=== PATIENT | female | born 1965 | race Caucasian/White ===

== ENCOUNTER 2019-04-01 00:55 | Inpatient (IN) | payer OTHER ==
[2019-04-01] MEDS ORDERED: ACETAMINOPHEN 325 MG TAB PO (05:30)
[2019-04-01] MEDS ORDERED: HYDROCODONE/APAP (5/325) TAB PO (05:30)
[2019-04-01] MEDS ORDERED: VANCOMYCIN IV PER PHARMACY XX (05:30)
[2019-04-01] MEDS ORDERED: ONDANSETRON 4 MG INJ IV (05:30)
[2019-04-01 06:13] LABS: ADD MAN DIFF? NO
[2019-04-01 06:22] LABS: BASOPHIL # 0.1 10^3/ul (0.0-0.1); BASOPHILS % 0.5 % (0.0-2.0); EOSINOPHILS # 0.2 10^3/ul (0.0-0.5); EOSINOPHILS % 1.8 % (0.0-7.0); HEMATOCRIT 35.4 % (37.0-47.0); HEMOGLOBIN 11.5 g/dl (12.0-16.0); LYMPHOCYTES # 1.7 10^3/ul (0.8-2.9); LYMPHOCYTES % 17.4 % (15.0-51.0); MEAN CORPUSCULAR HEMOGLOBIN 31.3 pg (29.0-33.0); MEAN CORPUSCULAR HGB CONC 32.5 g/dl (32.0-37.0); MEAN CORPUSCULAR VOLUME 96.2 fl (82.0-101.0); MEAN PLATELET VOLUME 10.3 fl (7.4-10.4); MONOCYTE # 0.8 10^3/ul (0.3-0.9); MONOCYTES % 8.2 % (0.0-11.0); NEUTROPHILS % 71.2 % (39.0-77.0); PLATELET COUNT 280 10^3/UL (140-415); RED BLOOD COUNT 3.68 10^6/ul (4.20-5.40); RED CELL DISTRIBUTION WIDTH 13.1 % (11.5-14.5)
[2019-04-01 06:22] LABS: WHITE BLOOD COUNT 9.9 10^3/ul (4.8-10.8)
[2019-04-01] MEDS: SOD CHLORIDE 0.9% 1,000 ML IV ×2 (06:27→15:02)
[2019-04-01] MEDS: NACL 0.9% 3 ML SYG IV (06:28)
[2019-04-01] MEDS: VANCOMYCIN 1.25 GM/NS 250 ML 250 ML IVPB (06:28)
[2019-04-01 06:50] LABS: ALANINE AMINOTRANSFERASE 29 IU/L (13-69); ALBUMIN 3.4 g/dl (3.3-4.9); ALBUMIN/GLOBULIN RATIO 0.94; ALKALINE PHOSPHATASE 201 IU/L (42-121); ANION GAP 6 (5-13); ASPARTATE AMINO TRANSFERASE 35 IU/L (15-46); BILIRUBIN,INDIRECT 0.5 mg/dl (0-1.1); BILIRUBIN,TOTAL 0.5 mg/dl (0.2-1.3); BLOOD UREA NITROGEN 15 mg/dl (7-20); CALCIUM 9.2 mg/dl (8.4-10.2); CARBON DIOXIDE 32 mmol/L (21-31); CHLORIDE 100 mmol/L (97-110); CHOL/HDL RATIO 5.4 RATIO; CHOLESTEROL 130 mg/dl (100-200); CREATININE 0.74 mg/dl (0.44-1.00); Estimated GFR > 60 mL/min (>60); GLUCOSE 166 mg/dl (70-220); HDL CHOLESTEROL 24 mg/dl (37-92); LDL CHOLESTEROL,CALCULATED 83 mg/dl; MAGNESIUM 2.2 mg/dl (1.7-2.5); POTASSIUM 3.9 mmol/L (3.5-5.1); SODIUM 138 mmol/L (135-144); TRIGLYCERIDES 117 mg/dl (0-149)
[2019-04-01 06:58] LABS: HEMOGLOBIN A1C 5.1 % (0-5.9)
[2019-04-01] MEDS: CEFEPIME 1GM/50 ML (PMX) 50 ML IVPB ×2 (09:03→23:23)
[2019-04-01] MEDS: HEPARIN 5,000 UNIT/1 ML VIAL SC ×2 (09:03→22:44)
[2019-04-01 09:40] LABS: C-REACTIVE PROTEIN 8.9 mg/dl (0.0-0.9)
[2019-04-01 10:43] LABS: ERYTHROCYTE SEDIMENTATION RATE 66 mm/Hr (0-30)
[2019-04-01] MEDS: HYDROCODONE/APAP (5/325) TAB PO ×2 (10:59→23:29)
[2019-04-01] MEDS: BISACODYL (EC) 5 MG TAB PO (16:38)
[2019-04-01] MEDS: VANCOMYCIN 750 MG (PMX) 250 ML IVPB (18:08)
[2019-04-02] MEDS: VANCOMYCIN 750 MG (PMX) 250 ML IVPB ×2 (06:01→17:53)
[2019-04-02] MEDS: HYDROCODONE/APAP (5/325) TAB PO ×4 (06:02→23:28)
[2019-04-02 06:18] LABS: ADD MAN DIFF? NO
[2019-04-02 06:30] LABS: WHITE BLOOD COUNT 7.1 10^3/ul (4.8-10.8)
[2019-04-02 06:30] LABS: BASOPHIL # 0.1 10^3/ul (0.0-0.1); BASOPHILS % 0.7 % (0.0-2.0); EOSINOPHILS # 0.2 10^3/ul (0.0-0.5); EOSINOPHILS % 2.1 % (0.0-7.0); HEMOGLOBIN 10.9 g/dl (12.0-16.0); LYMPHOCYTES # 1.6 10^3/ul (0.8-2.9); LYMPHOCYTES % 23.1 % (15.0-51.0); MEAN CORPUSCULAR HEMOGLOBIN 31.2 pg (29.0-33.0); MEAN CORPUSCULAR HGB CONC 32.1 g/dl (32.0-37.0); MEAN CORPUSCULAR VOLUME 97.4 fl (82.0-101.0); MEAN PLATELET VOLUME 9.9 fl (7.4-10.4); MONOCYTE # 0.5 10^3/ul (0.3-0.9); MONOCYTES % 7.3 % (0.0-11.0); NEUTROPHIL # 4.6 10^3/ul (1.6-7.5); NEUTROPHILS % 64.8 % (39.0-77.0); PLATELET COUNT 305 10^3/UL (140-415); RED BLOOD COUNT 3.49 10^6/ul (4.20-5.40); RED CELL DISTRIBUTION WIDTH 12.9 % (11.5-14.5)
[2019-04-02 06:55] LABS: ANION GAP 4 (5-13); BLOOD UREA NITROGEN 12 mg/dl (7-20); CALCIUM 8.8 mg/dl (8.4-10.2); CARBON DIOXIDE 32 mmol/L (21-31); CHLORIDE 102 mmol/L (97-110); CREATININE 0.64 mg/dl (0.44-1.00); Estimated GFR > 60 mL/min (>60); GLUCOSE 100 mg/dl (70-220); POTASSIUM 4.1 mmol/L (3.5-5.1); SODIUM 138 mmol/L (135-144)
[2019-04-02] MEDS: CEFEPIME 1GM/50 ML (PMX) 50 ML IVPB ×2 (09:19→21:14)
[2019-04-02] MEDS: HEPARIN 5,000 UNIT/1 ML VIAL SC ×2 (09:22→21:16)
[2019-04-03] MEDS: HYDROCODONE/APAP (5/325) TAB PO ×3 (05:26→20:38)
[2019-04-03 06:32] LABS: VANCOMYCIN,TROUGH 7.1 ug/ml (10.0-20.0)
[2019-04-03] MEDS: VANCOMYCIN 750 MG (PMX) 250 ML IVPB ×3 (06:53→22:34)
[2019-04-03] MEDS: CEFEPIME 1GM/50 ML (PMX) 50 ML IVPB ×2 (09:08→20:31)
[2019-04-03 09:16] LABS: ADD MAN DIFF? NO
[2019-04-03 09:28] LABS: BASOPHIL # 0.1 10^3/ul (0.0-0.1); BASOPHILS % 0.7 % (0.0-2.0); EOSINOPHILS # 0.2 10^3/ul (0.0-0.5); EOSINOPHILS % 2.1 % (0.0-7.0); HEMATOCRIT 35.6 % (37.0-47.0); HEMOGLOBIN 11.5 g/dl (12.0-16.0); LYMPHOCYTES # 1.7 10^3/ul (0.8-2.9); LYMPHOCYTES % 22.9 % (15.0-51.0); MEAN CORPUSCULAR HEMOGLOBIN 31.3 pg (29.0-33.0); MEAN CORPUSCULAR HGB CONC 32.3 g/dl (32.0-37.0); MEAN CORPUSCULAR VOLUME 96.7 fl (82.0-101.0); MEAN PLATELET VOLUME 9.6 fl (7.4-10.4); MONOCYTE # 0.5 10^3/ul (0.3-0.9); NEUTROPHIL # 4.8 10^3/ul (1.6-7.5); NEUTROPHILS % 63.1 % (39.0-77.0); PLATELET COUNT 370 10^3/UL (140-415); RED BLOOD COUNT 3.68 10^6/ul (4.20-5.40)
[2019-04-03 09:28] LABS: WHITE BLOOD COUNT 7.6 10^3/ul (4.8-10.8)
[2019-04-03 09:38] LABS: ANION GAP 6 (5-13); BLOOD UREA NITROGEN 10 mg/dl (7-20); CALCIUM 8.7 mg/dl (8.4-10.2); CARBON DIOXIDE 31 mmol/L (21-31); CHLORIDE 100 mmol/L (97-110); CREATININE 0.61 mg/dl (0.44-1.00); Estimated GFR > 60 mL/min (>60); GLUCOSE 92 mg/dl (70-220); POTASSIUM 3.8 mmol/L (3.5-5.1); SODIUM 137 mmol/L (135-144)
[2019-04-03 09:47] LABS: INR 0.88; PT RATIO 0.9
[2019-04-03 09:48] LABS: PARTIAL THROMBOPLASTIN TIME 37.6 Sec (23.0-35.0)
[2019-04-03] MEDS ORDERED: POLYMYXIN B 500000 UNIT INJ (16:29)
[2019-04-03] MEDS ORDERED: PROPOFOL 20 ML (16:44)
[2019-04-03] MEDS ORDERED: LIDOCAINE 1% (MDV) 20 ML INJ (16:45)
[2019-04-03] MEDS ORDERED: MIDAZOLAM 1 MG/ML 2 ML INJ (16:45)
[2019-04-03] MEDS ORDERED: HYDROGEN PEROXIDE 118 ML (16:52)
[2019-04-03] MEDS ORDERED: CEFAZOLIN 1 GM INJ (17:01)
[2019-04-03] MEDS ORDERED: ONDANSETRON 4 MG INJ (17:22)
[2019-04-03] MEDS ORDERED: DEXAMETHASONE 4 MG/ML 5 ML INJ (17:30)
[2019-04-03] MEDS ORDERED: ROPIVACAINE 0.5 % 30 ML VIAL (17:30)
[2019-04-03] MEDS ORDERED: KETOROLAC 30 MG INJ (17:59)
[2019-04-03] MEDS: POLYMYXIN/BACITRACIN 1L IRRIG (18:26)
[2019-04-03] MEDS ORDERED: NACL 0.9% 3 ML SYG IV (18:30)
[2019-04-03] MEDS ORDERED: morphine 4 MG/ML VIAL IV (18:30)
[2019-04-03] MEDS ORDERED: HYDROCODONE/APAP (5/325) TAB PO (18:30)
[2019-04-03] MEDS: SOD CHLORIDE 0.9% 1,000 ML IV (20:32)
[2019-04-04] MEDS: HYDROCODONE/APAP (5/325) TAB PO ×3 (03:30→19:41)
[2019-04-04] MEDS: VANCOMYCIN 750 MG (PMX) 250 ML IVPB ×3 (05:22→22:00)
[2019-04-04 05:59] LABS: ADD MAN DIFF? NO
[2019-04-04 06:06] LABS: WHITE BLOOD COUNT 11.1 10^3/ul (4.8-10.8)
[2019-04-04 06:06] LABS: BASOPHILS % 0.3 % (0.0-2.0); HEMATOCRIT 34.6 % (37.0-47.0); HEMOGLOBIN 11.4 g/dl (12.0-16.0); LYMPHOCYTES # 0.9 10^3/ul (0.8-2.9); LYMPHOCYTES % 8.2 % (15.0-51.0); MEAN CORPUSCULAR HEMOGLOBIN 31.7 pg (29.0-33.0); MEAN CORPUSCULAR HGB CONC 32.9 g/dl (32.0-37.0); MEAN CORPUSCULAR VOLUME 96.1 fl (82.0-101.0); MEAN PLATELET VOLUME 9.5 fl (7.4-10.4); MONOCYTE # 0.3 10^3/ul (0.3-0.9); MONOCYTES % 2.3 % (0.0-11.0); NEUTROPHIL # 9.5 10^3/ul (1.6-7.5); NEUTROPHILS % 85.7 % (39.0-77.0); PLATELET COUNT 410 10^3/UL (140-415); RED CELL DISTRIBUTION WIDTH 12.9 % (11.5-14.5)
[2019-04-04 06:28] LABS: ANION GAP 5 (5-13); BLOOD UREA NITROGEN 13 mg/dl (7-20); CALCIUM 8.7 mg/dl (8.4-10.2); CARBON DIOXIDE 30 mmol/L (21-31); CHLORIDE 101 mmol/L (97-110); CREATININE 0.52 mg/dl (0.44-1.00); Estimated GFR > 60 mL/min (>60); GLUCOSE 186 mg/dl (70-220); POTASSIUM 4.7 mmol/L (3.5-5.1); SODIUM 136 mmol/L (135-144)
[2019-04-04] MEDS: SOD CHLORIDE 0.9% 1,000 ML IV ×2 (06:56→19:10)
[2019-04-04] MEDS: CEFEPIME 1GM/50 ML (PMX) 50 ML IVPB ×2 (08:56→20:24)
[2019-04-04 13:33] LABS: VANCOMYCIN,TROUGH 13.9 ug/ml (10.0-20.0)
== END 2019-04-04 23:00 | disposition home or self-care (01) | DRG 501 ==
LOC: MS1 00:55
PROVIDERS: Internal Medicine
PROC: 0MBP0ZZ Excision of Left Knee Bursa and Ligament, Open Approach (ICD-10-PCS; principal; 2019-04-03 16:43)
DX: M71.162 Other infective bursitis, left knee (principal); L03.116 Cellulitis of left lower limb; D64.9 Anemia, unspecified; F32.9 Major depressive disorder, single episode, unspecified
CPT/HCPCS: 71045; 73562; 73721; 80048; 80053; 80061; 80202; 83036; 83735; 84100; 85025; 85610; 85651; 85730; 86140; 87070; 87075; 87102; 93005; 97162